=== PATIENT | male | born 1970 | race Caucasian/White ===

== ENCOUNTER 2017-12-18 18:07 | Emergency (ER) | payer BC ==
[~2017-12-18] VITALS: Ht 167.6 cm; Wt 60.5 kg
[2017-12-18 18:12] VITALS: TEMP 98.5
[2017-12-18 18:50] LABS: BASO # 0.1 (0.0-0.2); BASO % 0.5 % (0.0-2.0); EOS # 0.2 (0.0-0.7); GRAN # 13.3 (1.4-6.5); GRAN % 81.7 % (42.2-75.2); HEMOGLOBIN 12.2 g/dl (13.5-18.0); LYMPH # 1.4 (1.2-3.4); LYMPH % 8.9 % (20.0-51.0); MEAN CELL VOLUME 107 fl (80.0-100.0); MEAN CORPUSCULAR HEMOGLOBIN 39 pg (27.0-31.0); MEAN CORPUSCULAR HGB CONC 36 g/dl (33.0-37.0); MEAN PLATELET VOLUME 9.2 fl (7.4-10.4); MONO # 1.2 (0.1-0.6); MONO % 7.3 % (1.7-9.3); PLATELET COUNT 155 K/mm3 (130-400); RED BLOOD COUNT 3.13 M/mm3 (4.20-5.60); REDCELL DISTRIBUTION WIDTH-CV 14.1 % (11.5-14.5)
[2017-12-18 18:52] LABS: INR 1.6 (0.8-3.0); PROTHROMBIN TIME 18.5 SECONDS (9.7-12.8)
[2017-12-18 18:55] LABS: HEMATOCRIT 33.5 % (42.0-52.0)
[2017-12-18 18:56] LABS: ALBUMIN 2.8 gm/dL (3.5-5.0); CALCIUM 8.9 mg/dL (8.4-10.2); CREATININE, serum 0.47 mg/dL (0.66-1.25); TOTAL PROTEIN 7.2 gm/dL (6.4-8.2)
[2017-12-18 19:12] LABS: POTASSIUM 1.9 mmol/L (3.4-5.0)
[2017-12-18 19:52] LABS: COLLECTION METHOD CLEAN CATCH
[2017-12-18 20:03] LABS: PH 7 (5-8); SQUAMOUS EPITHELIAL None Seen /hpf; URINE APPEARANCE Clear; URINE BACTERIA None Seen /hpf; URINE BILIRUBIN Negative (NEGATIVE); URINE BLOOD Negative (NEGATIVE); URINE COLOR Yellow; URINE GLUCOSE Negative (NEGATIVE); URINE KETONE Negative (NEGATIVE); URINE LEUKOCYTE ESTERASE Negative (NEGATIVE); URINE NITRATE Negative (NEGATIVE); URINE PROTEIN(semi-quant) Negative (NEGATIVE); URINE RBC 0-2 /hpf; URINE UROBILINOGEN Negative (NEGATIVE)
[2017-12-19 00:15] VITALS: BP 120/55
[2017-12-19 00:23] VITALS: PULSE 102
== END 2017-12-19 00:23 | disposition short-term general hospital (02) ==
LOC: COL.ER 18:07
PROVIDERS: Emergency Medicine
DX: E87.6 Hypokalemia (principal); I10 Essential (primary) hypertension; K21.9 Gastro-esophageal reflux disease without esophagitis
CPT/HCPCS: J3475; J3480; Q9967

== ENCOUNTER → 2018-01-01 | Outpatient (CLI) | payer BC ==
[~2018-01-01] VITALS: Ht 167.6 cm; Wt 66.9 kg
[~2018-01-01] MED LIST: ALDACTONE50 MG PO; FOLIC ACID 11 MG/TA1 PO; K-DUR20 MEQ PO; LASIX 40MG TABL40 MG PO; NATURE'S BLEND100 M2 PO
[2018-01-01 10:22] VITALS: BP 127/68; PULSE 105
[2018-01-01 11:38] VITALS: BP 132/49; PULSE 100
== END ==
LOC: COL.RAD 09:50
DX: K70.31 Alcoholic cirrhosis of liver with ascites (principal)

== ENCOUNTER → 2018-09-26 | Outpatient (CLI) | payer BC | LOC: COL.RAD 12:45 | DX: K74.60 Unspecified cirrhosis of liver (principal); M62.50 Muscle wasting and atrophy, not elsewhere classified, unspecified site; K76.0 Fatty (change of) liver, not elsewhere classified ==

== ENCOUNTER 2019-03-22 08:16 | Day surgery (SDC) | payer BC ==
[~2019-03-22] VITALS: Ht 167.6 cm; Wt 73.7 kg
[~2019-03-22 08:16] MED LIST changes: -ERGOCALCIFER50000 IU PO
[2019-03-22 10:00] VITALS: BP 139/63; PULSE 85; TEMP 97.6
[2019-03-22] MEDS ORDERED: ERGOCALCIFER50000 IU PO (10:37)
[2019-03-22 11:55] VITALS: BP 133/70; PULSE 101; TEMP 97.7
--- NOTE | 2019-03-22 11:55 | NUR ---
Pt arrived to post procedure room and was received by HARMONY Murry. A muffin and juice was brought per pt's request. Call light within reach and VSS and WNL.
[2019-03-22 12:10] VITALS: BP 129/70; PULSE 101
--- NOTE | 2019-03-22 12:10 | NUR ---
Pt successfully finished muffin and juice and denies any abdominal dicsomfort or N/V. Pt states he is doing "very very well". VSS and WNL
[2019-03-22 12:25] VITALS: BP 137/68; PULSE 96
--- NOTE | 2019-03-22 12:25 | NUR ---
Pt states that he feels well and ready to go home. Awais, brother at bedside and will be pt's ride home. Reviewed discharge information with pt including new medication info, adverse signs/symptoms to watch for, and contact information if concerns arise. Also reviewed with patient follow up information, and he agreed with plan and expressed understanding of the plan.
--- NOTE | 2019-03-22 12:43 | NUR ---
Dr. Kitchen at bedside reviewing procedure with patient and plan of care.
== END 2019-03-22 12:45 | disposition home or self-care (01) ==
LOC: SDCO 08:16
DX: K74.60 Unspecified cirrhosis of liver (principal); K21.0 Gastro-esophageal reflux disease with esophagitis; Z79.899 Other long term (current) drug therapy; F17.210 Nicotine dependence, cigarettes, uncomplicated; F41.9 Anxiety disorder, unspecified; E87.6 Hypokalemia
CPT/HCPCS: J2704; J7120

== ENCOUNTER → 2019-03-22 | Outpatient (CLI) | payer BC ==
[~2019-03-22] MED LIST changes: +ERGOCALCIFER50000 IU PO
== END ==
LOC: COL.RAD 08:00
DX: K70.30 Alcoholic cirrhosis of liver without ascites (principal)

== ENCOUNTER → 2019-08-29 | Outpatient (CLI) | payer BC ==
[~2019-08-29] MED LIST changes: +BACTRIM DS 8001 TAB PO; +ERGOCALCIFER50000 IU PO; +L-CARNITINE500 M1 PO; +PRILOSEC10 MG PO; +TYLENOL 500MG500 MG PO; +VITAMIN A10k
[2019-08-29 15:23] LABS: BILIRUBIN,TOTAL 1.7 mg/dL (0.0-1.0); CALCIUM 8.7 mg/dL (8.4-10.2); CREATININE, serum 1.33 (0.66-1.25); POTASSIUM 4.2 mmol/L (3.4-5.0); TOTAL PROTEIN 8.5 gm/dL (6.4-8.2)
[2019-08-29 15:43] LABS: HEMATOCRIT 42.4 % (42.0-52.0); HEMOGLOBIN 14.6 g/dl (13.5-18.0); MEAN CELL VOLUME 101 fl (80.0-100.0); MEAN CORPUSCULAR HEMOGLOBIN 35 pg (27.0-31.0); MEAN CORPUSCULAR HGB CONC 34 g/dl (33.0-37.0); MEAN PLATELET VOLUME 11.1 fl (7.4-10.4); RED BLOOD COUNT 4.22 M/mm3 (4.20-5.60); REDCELL DISTRIBUTION WIDTH-CV 13.8 % (11.5-14.5)
[2019-08-29 17:31] LABS: PLATELET COUNT 35 K/mm3 (130-400)
[2019-08-29 17:58] LABS: BAND 28 % (0-10); LYMPHOCYTE 1 % (20.0-51.0); NEUTROPHILS 67 % (42.0-75.2); PLATELET ESTIMATE NORMAL (NORMAL)
[2019-08-30 07:25] LABS: PATHOLOGY DIFF REVIEW OK
== END ==
LOC: COL.LAB 14:34
PROVIDERS: Family Medicine
DX: K70.31 Alcoholic cirrhosis of liver with ascites (principal); I10 Essential (primary) hypertension; E78.5 Hyperlipidemia, unspecified

== ENCOUNTER → 2019-10-07 | Outpatient (CLI) | payer BC | LOC: COL.RAD 09:45 | DX: K74.60 Unspecified cirrhosis of liver (principal); D69.6 Thrombocytopenia, unspecified; K76.0 Fatty (change of) liver, not elsewhere classified ==

== ENCOUNTER → 2020-01-14 | Outpatient (CLI) | payer BC | LOC: COL.RAD 07:42 | DX: R18.8 Other ascites (principal); K74.60 Unspecified cirrhosis of liver; K76.0 Fatty (change of) liver, not elsewhere classified; D69.6 Thrombocytopenia, unspecified ==

== ENCOUNTER → 2020-06-17 | Outpatient (CLI) | payer BC | LOC: COL.RAD 10:16 | DX: K70.30 Alcoholic cirrhosis of liver without ascites (principal); K82.8 Other specified diseases of gallbladder; R16.1 Splenomegaly, not elsewhere classified ==

== ENCOUNTER → 2020-12-14 | Outpatient (CLI) | payer BC | LOC: COL.RAD 10:02 | DX: K82.8 Other specified diseases of gallbladder (principal); K70.30 Alcoholic cirrhosis of liver without ascites ==

== ENCOUNTER → 2021-06-22 | Outpatient (CLI) | payer BC | LOC: COL.RAD 10:22 | DX: K70.30 Alcoholic cirrhosis of liver without ascites (principal) ==

== ENCOUNTER 2021-09-03 06:42 | Day surgery (SDC) | payer BC ==
[~2021-09-03] VITALS: Ht 170.2 cm; Wt 78.3 kg
[2021-09-03] MEDS ORDERED: NATURE'S BLEND100 M2 PO (07:14)
[2021-09-03] MEDS ORDERED: ALEVE 220MG220 MG PO (07:15)
[2021-09-03 07:18] VITALS: BP 127/69; PULSE 75; TEMP 98.9
[2021-09-03] MEDS ORDERED: VITAMIN D31000 I1 PO (07:26)
[2021-09-03 08:15] VITALS: BP 121/69; PULSE 66; TEMP 98.1
[2021-09-03 08:30] VITALS: BP 120/66; PULSE 66; TEMP 98
[2021-09-03 08:43] VITALS: BP 115/81; PULSE 74; TEMP 98
[2021-09-03 12:59] VITALS: BP 121/64; PULSE 65
== END 2021-09-03 08:47 | disposition home or self-care (01) ==
LOC: SDCO 06:42
DX: K70.31 Alcoholic cirrhosis of liver with ascites (principal); F17.210 Nicotine dependence, cigarettes, uncomplicated; D69.6 Thrombocytopenia, unspecified; Z79.899 Other long term (current) drug therapy
CPT/HCPCS: J2704; J7030

== ENCOUNTER → 2022-02-04 | Outpatient (CLI) | payer BC ==
[~2022-02-04] MED LIST changes: +ALEVE 220MG220 MG PO; +VITAMIN D31000 I1 PO
== END ==
LOC: COL.RAD 09:27
DX: K70.30 Alcoholic cirrhosis of liver without ascites (principal); R16.1 Splenomegaly, not elsewhere classified

== ENCOUNTER 2022-10-13 09:42 | Emergency (ER) | payer BC ==
[~2022-10-13] VITALS: Ht 170.2 cm; Wt 68.2 kg
[2022-10-13 09:44] VITALS: TEMP 97.7
[2022-10-13 10:41] VITALS: BP 153/80; PULSE 77
== END 2022-10-13 10:41 | disposition home or self-care (01) ==
LOC: COL.ER → EDBD 09:43 → COL.ER 10:41
DX: S01.81XA Laceration without foreign body of other part of head, initial encounter (principal); F17.200 Nicotine dependence, unspecified, uncomplicated; Z23 Encounter for immunization; W01.0XXA Fall on same level from slipping, tripping and stumbling without subsequent striking against object, initial encounter; Y92.480 Sidewalk as the place of occurrence of the external cause